=== PATIENT | male | born 1940 | race Caucasian/White ===

== ENCOUNTER 2017-02-13 14:08 | Observation (INO) | payer MEDICARE, BC ==
[~2017-02-13] VITALS: Ht 182.9 cm; Wt 107.5 kg
--- NOTE | ~2017-02-13 | DS ---
Discharge Summary [address] [place]. [address] NAME: HOWIE BRUNER JR : 44 STATUS : DIS IN PAT#: [id number] AGE: 76 ADM/REG DATE : 02/13/17 MR#: [id number] REPORT SERV DATE: 02/16/17 DICTATED BY: MEHRDAD DANG DATE: 02/15/17 REPORT STATUS : Draft TRANSCRIBED BY: MODL DATE: 02/15/17 ADMISSION DATE: 02/13/2017 DISCHARGE DATE: 02/14/2017 OBSERVATION DISCHARGE. OBSERVATION PERIOD: 02/13/2017 to 02/14/2017. DISCHARGE DIAGNOSES: 1. Sinus tachycardia. 2. Premature ventricular contractions. 3. Positive D-dimer with history of pulmonary embolus post shoulder surgery. Negative CTA of the chest and venous ultrasound imaging, lower extremities, this admission. 4. Hypokalemia and hypomagnesemia on admission, probably related to hydrochlorothiazide, normal at discharge, with replacement off hydrochlorothiazide. 5. Type 2 diabetes with hemoglobin A1c 7.7, on oral therapy. 6. Hyperlipidemia on statin therapy. Total cholesterol 160, HDL 62, LDL 68, and triglycerides 151. 7. Iron deficiency with ferritin of 28, apparent recent endoscopic evaluation by Dr. Genao. Outpatient followup needed. 8. Gastroesophageal reflux disease. 9. History of prostate cancer, post surgery. 10.History of squamous cell carcinoma of the head and neck, unknown primary, post surgery radiation and chemotherapy. 11.Abnormal renal cysts per ultrasound imaging in June 2016, at which time, six-month followup recommended. 12.Nonobstructing renal stones. OPERATIONS AND PROCEDURES: None. HISTORY OF PRESENT ILLNESS: 76-year-old white male, regular patient of Dr. Lakhwinder Campos, who was referred to the Hospitalist Service, a day of observation by Dr. Campos because of tachycardia. The patient was in Dr. Campos's office for his regular physical examination. He was asymptomatic. He was found to be tachycardic. Initially, it was unclear whether this was a supraventricular tachycardia other than sinus. An EKG did demonstrate sinus tachycardia with PVCs. He was referred for further evaluation. ADDITIONAL HISTORY: Per admission history and physical examination. PHYSICAL EXAMINATION: Per admission history and physical examination. ADMISSION LABORATORY: Per admission history and physical examination. Discharge Summary [address] [place]. [address] NAME: HOWIE BRUNER JR : 44 STATUS : DIS IN PAT#: [id number] AGE: 76 ADM/REG DATE : 02/13/17 MR#: [id number] REPORT SERV DATE: 02/16/17 DICTATED BY: MEHRDAD DANG DATE: 02/15/17 REPORT STATUS : Draft TRANSCRIBED BY: MODL DATE: 02/15/17 HOSPITAL COURSE: He was admitted as described, with sinus tachycardia that appeared to have some orthostatic component, with PVCs, hypokalemia hypomagnesemia, and positive D-dimer all in the setting of the above-mentioned comorbidities. He was given 2 L of fluid as he had been n.p.o. since the previous night in anticipation of his physical examination. He was given potassium and magnesium replacement. His hydrochlorothiazide was discontinued. He was monitored on telemetry and no arrhythmias were found except some PACs and occasional sinus tachycardia. With his positive D-dimer and previous VTE history, addition evaluation was done that included venous ultrasound imaging of both legs. No DVT was noted in either lower extremity. A CTA of the chest was done that showed no pulmonary emboli and no acute abnormality. Echocardiography was performed because of his presentation. This showed an ejection fraction of 50%. There was mild diastolic dysfunction. There was normal right ventricle and mild aortic insufficiency, mitral regurgitation, and pulmonic regurgitation. In view of the above, it was not felt that further evaluation was acutely needed at this time and that he could be safely discharged home with outpatient followup off hydrochlorothiazide, to have followup potassium and magnesium levels. Additional considerations would be stress imaging and Holter monitoring. He will also need follow up of his abnormal renal cysts and iron deficiency. DISCHARGE MEDICATIONS: Pending outpatient followup Norvasc 10 mg daily, vitamin C 500 mg twice daily, aspirin 81 mg daily, Lipitor 10 mg daily, B12 1000 mcg daily, vitamin D 400 mg twice daily, Prinivil 40 mg daily, Protonix 40 mg daily, Zoloft 50 mg at bedtime, metformin 1000 mg with breakfast and supper to start Thursday 48 hours post CTA, Centrum Silver daily, osteo Bi-Flex daily, and no hydrochlorothiazide. DD/MODL Mehrdad Dang M.D. / [id number] CC: Joceline Huerta M.D.
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
[2017-02-13] MEDS ORDERED: GLUCOPHAGE1000 MG PO (15:05)
[2017-02-13] MEDS ORDERED: HCTZ25B PO (15:05)
[2017-02-13] MEDS ORDERED: NORV10 PO (15:05)
[2017-02-13] MEDS ORDERED: LISINOPRIL40 MG PO (15:06)
[2017-02-13] MEDS ORDERED: LIPITOR10 PO (15:06)
[2017-02-13] MEDS ORDERED: CENTRUM PO (15:06)
[2017-02-13] MEDS ORDERED: VITC500 PO (15:06)
[2017-02-13] MEDS ORDERED: VITAMIN D400 UNI1 PO (15:07)
[2017-02-13] MEDS ORDERED: OSTEO BI-FLEX1 EACH PO (15:07)
[2017-02-13] MEDS ORDERED: CYANO1000T PO (15:07)
[2017-02-13] MEDS ORDERED: ASAB PO (15:08)
[2017-02-13] MEDS ORDERED: PROTONIX PO (15:09)
[2017-02-13] MEDS ORDERED: ZOL50 PO (15:10)
[2017-02-13 16:54] LABS: HEMATOCRIT 44.9 % (40.0-51.0); HEMOGLOBIN 15.7 g/dL (13.6-17.8); MEAN CORPUS HGB CONC 34.9 g/dL (32.0-36.0); MEAN CORPUSCULAR VOLUME 91.7 fL (80-100); MEAN PLATELET VOLUME 8.3 fL (6.8-10.8); PLATELET COUNT 218 10/3/uL (150-400); RBC DISTRIBUTION WIDTH 13.7 % (12.0-16.0); RED CELL COUNT 4.89 10/6/uL (4.7-6.1)
[2017-02-13 16:59] LABS: BASOPHILS 0.6 %; BASOPHILS ABSOLUTE 0.04 10/3/uL (0.0-0.16); EOSINOPHILS ABSOLUTE 0.13 10/3/uL (0.0-0.53); HEMATOCRIT 41.6 % (40.0-51.0); HEMOGLOBIN 15.1 g/dL (13.6-17.8); IMMATURE GRANULOCYTES 0.2 %; IMMATURE GRANULOCYTES ABSOLUTE 0.01 10/3/uL (0.0-0.11); LYMPHOCYTES 11.8 %; LYMPHOCYTES ABSOLUTE 0.77 10/3/uL (0.67-4.30); MEAN CORPUS HGB CONC 36.3 g/dL (32.0-36.0); MEAN CORPUSCULAR HEMOGLOB 32.5 pg (26.0-34.0); MEAN CORPUSCULAR VOLUME 89.7 fL (80-100); MEAN PLATELET VOLUME 9.4 fL (9.2-13.0); MONOCYTES 7.9 %; MONOCYTES ABSOLUTE 0.52 10/3/uL (0.21-1.20); NEUTROPHILS 77.5 %; NEUTROPHILS ABSOLUTE 5.08 10/3/uL (2.02-8.40); PLATELET COUNT 186 10/3/uL (150-400); RBC DISTRIBUTION WIDTH 13.1 % (12.0-16.0); RED CELL COUNT 4.64 10/6/uL (4.7-6.1); RETICULOCYTE COUNT 1.3 % (0.5-2.5); RETICULOCYTE COUNT ABSOLUTE 60.8 10/3/uL (20.2-119.8); WHITE BLOOD CELLS 6.6 10/3/uL (4.5-10.5)
[2017-02-13 16:59] LABS: WHITE BLOOD CELLS 8.3 10/3/uL (4.5-10.5)
[2017-02-13 17:01] LABS: MANUAL DIFF NO %
[2017-02-13 17:04] LABS: D-DIMER QUANTITATIVE 1.29 ug/mLFEU (< 0.50)
[2017-02-13 17:17] LABS: A/G RATIO 1.3 (0.7-1.9); ALBUMIN 4.1 G/DL (3.5-5.0); ALKALINE PHOSPHATASE 81 U/L (45-117); BUN (BLOOD UREA NITROGEN) 17 MG/DL (6-23); C-REACTIVE PROTEIN <2.9 MG/L (<8.0); CALCIUM, SERUM 9.6 MG/DL (8.5-10.4); CHLORIDE, SERUM 104 MMOL/L (96-112); CO2 (CARBON DIOXIDE) 25 MMOL/L (24-34); CREATININE 0.89 MG/DL (0.70-1.30); FERRITIN 28 NG/ML (26-388); FREE T4 1.29 NG/DL (0.76-1.46); GFR AFRICAN AMERICAN 98 ML/MIN (>=60); GFR NON AFRICAN AMERICAN 84 ML/MIN (>=60); GLOBULIN 3.1 G/DL (2.5-4.1); GLUCOSE, SERUM 110 MG/DL (60-99); IRON BINDING CAPACITY 360 MCG/DL (250-450); IRON, SERUM 139 MCG/DL (35-150); POTASSIUM, SERUM 3.4 MMOL/L (3.5-5.3); SGOT(AST) 20 U/L (5-40); SGPT(ALT) 27 U/L (5-65); SODIUM, SERUM 138 MMOL/L (135-148); TOTAL BILIRUBIN 0.6 MG/DL (0-1.2); TOTAL PROTEIN 7.2 G/DL (6.0-8.5); TROPONIN I <0.02 NG/ML (<0.05)
[2017-02-13 17:18] LABS: ULTRASENSITIVE TSH 0.808 MCIU/ML (0.358-3.740)
[2017-02-13 17:31] LABS: PROCALCITONIN <0.05 ng/mL (<0.5)
[2017-02-13 17:38] LABS: A/G RATIO 1.8 (0.7-1.9); ALBUMIN 4.7 G/DL (3.5-5.0); ALKALINE PHOSPHATASE 87 U/L (45-117); BUN (BLOOD UREA NITROGEN) 18 MG/DL (6-23); CALCIUM, SERUM 9.7 MG/DL (8.5-10.4); CHLORIDE, SERUM 101 MMOL/L (96-112); CHOL/HDL RATIO(NOT ORDER) 2.6 (0-5); CHOLESTEROL 160 MG/DL (< 200); CO2 (CARBON DIOXIDE) 28 MMOL/L (24-34); CREATININE 0.91 MG/DL (0.70-1.30); GFR AFRICAN AMERICAN 96 ML/MIN (>=60); GFR NON AFRICAN AMERICAN 83 ML/MIN (>=60); GLOBULIN 2.6 G/DL (2.5-4.1); GLUCOSE, SERUM 109 MG/DL (60-99); HDL CHOLESTEROL 62 MG/DL (> 39); LDL CHOLESTEROL 68 MG/DL (< 130); NON-HDL CHOLESTEROL 98 MG/DL (< 160); SGOT(AST) 21 U/L (5-40); SGPT(ALT) 29 U/L (5-65); SODIUM, SERUM 140 MMOL/L (135-148); TOTAL BILIRUBIN 0.7 MG/DL (0-1.2); TOTAL PROTEIN 7.3 G/DL (6.0-8.5); TRIGLYCERIDE 151 MG/DL (< 150)
[2017-02-13 17:57] LABS: ULTRASENSITIVE TSH 0.932 MCIU/ML (0.358-3.740)
[2017-02-13 18:56] LABS: MICROALBUMIN, RANDOM URINE 6.7 MG/DL
[2017-02-14 06:19] LABS: HEMATOCRIT 38.4 % (40.0-51.0); HEMOGLOBIN 13.6 g/dL (13.6-17.8); MEAN CORPUS HGB CONC 35.4 g/dL (32.0-36.0); MEAN CORPUSCULAR HEMOGLOB 31.9 pg (26.0-34.0); MEAN CORPUSCULAR VOLUME 89.9 fL (80-100); PLATELET COUNT 182 10/3/uL (150-400); RBC DISTRIBUTION WIDTH 13.4 % (12.0-16.0); RED CELL COUNT 4.27 10/6/uL (4.7-6.1); WHITE BLOOD CELLS 5.3 10/3/uL (4.5-10.5)
[2017-02-14 06:20] LABS: MANUAL DIFF YES %
[2017-02-14 06:31] LABS: BUN (BLOOD UREA NITROGEN) 16 MG/DL (6-23); CALCIUM, SERUM 8.9 MG/DL (8.5-10.4); CHLORIDE, SERUM 107 MMOL/L (96-112); CO2 (CARBON DIOXIDE) 25 MMOL/L (24-34); CREATININE 0.86 MG/DL (0.70-1.30); GFR AFRICAN AMERICAN 99 ML/MIN (>=60); GFR NON AFRICAN AMERICAN 85 ML/MIN (>=60); SODIUM, SERUM 141 MMOL/L (135-148)
[2017-02-14 06:34] LABS: GLUCOSE, SERUM 146 MG/DL (60-99)
[2017-02-14 06:45] LABS: BAND NEUTROPHILS 2 %; BASOPHILS 2 %; BASOPHILS ABSOLUTE (CALC) 0.11 10/3/uL (0.0-0.16); EOSINOPHILS 3 %; EOSINOPHILS ABSOLUTE (CALC) 0.16 10/3/uL (0.0-0.53); LYMPHOCYTES 24 %; LYMPHOCYTES ABSOLUTE (CALC) 1.27 10/3/uL (0.67-4.30); MONOCYTES 11 %; MONOCYTES ABSOLUTE (CALC) 0.58 10/3/uL (0.21-1.20); NEUTROPHILS ABSOLUTE (CALC) 3.18 10/3/uL (2.02-8.40); PLATELET ESTIMATE ADQ (ADEQUATE); SEGMENTED NEUTROPHIL (0) 58 %; TOTAL NUCLEATED CELLS 100
[2017-02-14 06:46] LABS: ACANTHOCYTES OCC (0-2/OIF); HELMET CELLS OCC (0-2/OIF); POLYCHROMASIA 1+ (2-5/OIF) (0-1/OIF); TEARDROP SHAPED RBCS OCC (0-2/OIF); TOXIC GRANULATION SLT
== END 2017-02-14 20:39 | disposition home or self-care (01) ==
LOC: ENRESERVTM → ENRESERVDT → ENRESERV → 6NO 14:19
PROVIDERS: Internal Medicine
DX: R00.0 Tachycardia, unspecified (principal); I49.3 Ventricular premature depolarization; E87.6 Hypokalemia; E83.42 Hypomagnesemia; N20.0 Calculus of kidney; N28.1 Cyst of kidney, acquired; I25.10 Atherosclerotic heart disease of native coronary artery without angina pectoris; F41.9 Anxiety disorder, unspecified; E11.9 Type 2 diabetes mellitus without complications; E78.5 Hyperlipidemia, unspecified; K21.9 Gastro-esophageal reflux disease without esophagitis; Z85.46 Personal history of malignant neoplasm of prostate; Z86.711 Personal history of pulmonary embolism; Z85.828 Personal history of other malignant neoplasm of skin; Z87.891 Personal history of nicotine dependence; Z79.899 Other long term (current) drug therapy; Z98.890 Other specified postprocedural states; Z79.82 Long term (current) use of aspirin
CPT/HCPCS: 71020; 71275; 80048; 80053; 80061; 82043; 82728; 82962; 83036; 83540; 83550; 83735; 83880; 84132; 84145; 84439; 84443; 84484; 85025; 85027; 85045; 85379; 86140; 93306; 93970; 96372; 96374; A9270-GY; G0378; J3475; Q9967